=== PATIENT | male | born 1960 | race Caucasian/White ===

== ENCOUNTER 2016-08-27 18:42 | Observation (INO) | payer OTHER ==
--- NOTE | ~2016-08-27 | HP ---
History And Physical [id number] [place]. [address] NAME: BRENDA ARREGUIN : 58 STATUS : ADM Lars PAT#: [id number] AGE: 56 ADM/REG DATE : 08/27/16 MR#: [id number] REPORT SERV DATE: 08/28/16 DICTATED BY: KRISTINE BERNABE DATE: 08/28/16 REPORT STATUS : Draft TRANSCRIBED BY: MODL DATE: 08/28/16 DATE OF ADMISSION: 08/27/2016 CHIEF COMPLAINT: Chest pain. HISTORY OF PRESENT ILLNESS: This is a 56-year-old male with no prior documented coronary artery disease and cardiovascular risk factors of type 2 diabetes mellitus and tobacco use, who states onset of chest pain yesterday morning. He states it was to his mid sternum and upper chest with radiation through to the back to the left shoulder described as "pressure." The pain occurred at rest. It was fairly constant throughout the day with some relief with nitroglycerin in the emergency department. He states the pain was 6/10 at its worst, it is currently a 4/10 in severity. It was accompanied by some mild shortness of breath. No significant diaphoresis or nausea. There was no exertional component to the chest pain. The patient denies personal history for DVT, PE, CVA, or NE. He is on narcotics scheduled for degenerative disk disease and lumbar back pain under the care of a pain specialist. He does not get any regular exercise. He denies any PND, orthopnea, or lower extremity edema. MEDICAL HISTORY: 1. Type 2 diabetes mellitus with neuropathy. 2. Degenerative disk disease and chronic back pain. PAST SURGICAL HISTORY: Right inguinal hernia repair. HOME MEDICATIONS: Glucophage 1000 mg at bedtime and 500 mg every morning, Roxicodone 15 mg t.i.d. p.r.n. pain, Opana ER 15 mg every 12 hours, Lyrica 50 mg t.i.d., Ambien 10 mg at bedtime. ALLERGIES: NO KNOWN DRUG ALLERGIES. SOCIAL HISTORY: The patient is single. Lives with his daughter currently. He is on disability. He smokes one pack per day. He has been doing so for 30 years. Denies alcohol or illicit drug use. FAMILY HISTORY: Mother with CHF and diabetes, in her 80s. No premature cardiovascular disease among his first-degree relatives. REVIEW OF SYSTEMS: Negative except as indicated above. PHYSICAL EXAMINATION: VITAL SIGNS: Blood pressure 121/73, heart rate 60, temperature 97.7, pulse oximetry 95% room air. BMI 32.7. GENERAL: Well developed, well nourished, in no acute distress HEENT: Anicteric. Normal EOM. Head normocephalic. PERRLA, no xanthelasma. History And Physical [address] [address] NAME: BRENDA ARREGUIN : 58 STATUS : ADM Lars PAT#: [id number] AGE: 56 ADM/REG DATE : 08/27/16 MR#: [id number] REPORT SERV DATE: 08/28/16 DICTATED BY: KRISTINE BERNABE DATE: 08/28/16 REPORT STATUS : Draft TRANSCRIBED BY: LYNNE DATE: 08/28/16 NECK: Supple. No JVD. Carotids normal without bruits. LUNGS: There is wheezing to inspiration and expiration. No crackles. Normal respiratory effort at rest. CARDIAC: S1, S2 regular rate and rhythm. No murmurs, rubs, or gallops. No chest wall tenderness. ABDOMEN: Normal bowel sounds. Soft and nontender to palpation. No masses or organomegaly. EXTREMITIES: No peripheral edema. DP/PT and radial pulses palpable bilaterally. No clubbing or cyanosis. SKIN: Warm and dry. Normal turgor. No pallor or cyanosis. MUSCULOSKELETAL: Moving all extremities x4. Normal muscle strength. NEURO/PSYCH: Alert and oriented with appropriate affect. LABORATORY DATA: White blood count 12.2, hemoglobin 16.7, and hematocrit 48.1. Sodium 142, potassium 3.6, BUN 12, creatinine 0.8. Troponin less than 0.02 x2. Chest x-ray shows no acute cardiopulmonary processes. EKGs interpreted by myself indicate normal sinus rhythm and four separate EKGs with no ischemic changes. ASSESSMENT AND PLAN: 1. Midsternal chest pain in this 56-year-old male with cardiovascular risk factors of type 2 diabetes mellitus and tobacco use. He has been observed overnight in the chest pain observation unit and is negative for acute coronary syndrome. Recommend proceeding with nuclear stress test today to differentiate for any further ischemia. If this is low risk, we will plan to discharge him home later today with followup with his primary care physician for noncardiac etiologies to his chest pain. 2. Type 2 diabetes mellitus. Appears controlled on metformin. We will hold metformin while he is here and institute level 1 sliding scale insulin protocol as needed. 3. Tobacco abuse. I instructed the patient on complete cessation. There is also some wheezing on exam, so we will plan to give a bronchodilator prior to the patient going for stress testing. Recommend followup for possible chronic obstructive pulmonary disease management through his primary care physician. 4. Chronic pain and degenerative disk disease. Continue routine followup through his primary pain specialist. We will continue medications while he is here. 5. Obesity. Counseled the patient on increasing activity and low-fat low-cholesterol diet. DBT/MODL Kristine Bernabe NP / [id number] CC: Yasmeen Reeves, MSN, [employer] Harrison Clark M.D.
[2016-08-27 17:47] LABS: BASOPHILS 0.3 %; BASOPHILS ABSOLUTE 0.04 10/3/uL (0.0-0.16); EOSINOPHILS 0.7 %; EOSINOPHILS ABSOLUTE 0.08 10/3/uL (0.0-0.53); ER CBC TAT 0 Hrs 05 Mins; HEMATOCRIT 48.1 % (40.0-51.0); HEMOGLOBIN 16.7 g/dL (13.6-17.8); IMMATURE GRANULOCYTES 0.5 %; IMMATURE GRANULOCYTES ABSOLUTE 0.06 10/3/uL (0.0-0.11); LYMPHOCYTES 26.7 %; LYMPHOCYTES ABSOLUTE 3.26 10/3/uL (0.67-4.30); MEAN CORPUS HGB CONC 34.7 g/dL (32.0-36.0); MEAN CORPUSCULAR HEMOGLOB 30.9 pg (26.0-34.0); MEAN CORPUSCULAR VOLUME 88.9 fL (80-100); MEAN PLATELET VOLUME 9.9 fL (9.2-13.0); MONOCYTES 5.8 %; MONOCYTES ABSOLUTE 0.71 10/3/uL (0.21-1.20); NEUTROPHILS ABSOLUTE 8.08 10/3/uL (2.02-8.40); PLATELET COUNT 309 10/3/uL (150-400); RBC DISTRIBUTION WIDTH 14.1 % (12.0-16.0); RED CELL COUNT 5.41 10/6/uL (4.7-6.1); WHITE BLOOD CELLS 12.2 10/3/uL (4.5-10.5)
[2016-08-27 17:48] LABS: MANUAL DIFF NO %
[2016-08-27 17:54] LABS: INTERNATIONAL NORMAL RATI 1.1 UNITS (-); PARTIAL THROMBO TIME 28.9 SEC (22.5-37.2); PROTIME (NOT ORD) 13.7 SEC (12.0-14.5)
[2016-08-27 18:03] LABS: BUN (BLOOD UREA NITROGEN) 12 MG/DL (6-23); CALCIUM, SERUM 10.1 MG/DL (8.5-10.4); CHEST PAIN PROFILE TAT 0 Hrs 21 Mins; CHLORIDE, SERUM 110 MMOL/L (96-112); CO2 (CARBON DIOXIDE) 21 MMOL/L (24-34); CREATININE 0.86 MG/DL (0.70-1.30); GFR AFRICAN AMERICAN 112 ML/MIN (>=60); GFR NON AFRICAN AMERICAN 96 ML/MIN (>=60); GLUCOSE, SERUM 121 MG/DL (60-99); POTASSIUM, SERUM 3.6 MMOL/L (3.5-5.3); SODIUM, SERUM 142 MMOL/L (135-148); TROPONIN I <0.02 NG/ML (<0.05)
[~2016-08-27 18:42] MED LIST: AMB10 PO; GLUCOPHAGE1000 MG PO; GLUCPH PO; LORTAB10 PO; LYRICA50 PO; OPANA ER15 MG PO; ROXICODONE15 MG PO; ROXICODONE30 MG PO
== END 2016-08-28 15:33 | disposition home or self-care (01) ==
LOC: ER 18:42 → CDU1 18:57 → CDU2 19:10
PROVIDERS: Hospitalist
DX: R07.2 Precordial pain (principal); G89.29 Other chronic pain; E66.9 Obesity, unspecified; E11.40 Type 2 diabetes mellitus with diabetic neuropathy, unspecified; M51.36 Other intervertebral disc degeneration, lumbar region; M54.9 Dorsalgia, unspecified; Z98.890 Other specified postprocedural states; Z79.899 Other long term (current) drug therapy
CPT/HCPCS: 71020; 78452; 80048; 82962; 83735; 84484; 85025; 85610; 85730; 93005; 93017; 94640; 99285; A9270-GY; A9502; G0378; J2785

== ENCOUNTER 2016-08-30 18:20 | Emergency (ER) | payer OTHER | END 2016-08-30 18:52 | disposition home or self-care (01) | LOC: ER 18:20 | DX: M54.9 Dorsalgia, unspecified (principal); E11.9 Type 2 diabetes mellitus without complications; Z79.84 Long term (current) use of oral hypoglycemic drugs; Z79.891 Long term (current) use of opiate analgesic | CPT/HCPCS: 99283 ==